=== PATIENT | male | born 1965 | race African-American/Black ===

== ENCOUNTER 2024-06-16 17:14 | Emergency (ER) | payer MEDICAID ==
[~2024-06-16] VITALS: Ht 177.8 cm; Wt 77.0 kg
[2024-06-16 17:19] VITALS: BP 146/83; PULSE 96; RESP 16; TEMP 37.1; O2SAT 98
== END 2024-06-16 23:06 | disposition left against medical advice (07) ==
LOC: ER 17:14
DX: K40.90 Unilateral inguinal hernia, without obstruction or gangrene, not specified as recurrent (principal); I10 Essential (primary) hypertension
CPT/HCPCS: 74176; 76870; 93005; 93976; 99284